=== PATIENT | male | born 1935 | race Caucasian/White ===

== ENCOUNTER 2023-07-08 17:39 | Emergency (ER) | payer MEDICARE ==
[~2023-07-08] VITALS: Ht 180.3 cm; Wt 65.8 kg
[2023-07-08] MEDS ORDERED: ASPI-1169 PO (18:17)
[2023-07-08] MEDS ORDERED: AMLO-212 PO (18:17)
[2023-07-08] MEDS ORDERED: VITA15LO2 PO (18:17)
[2023-07-08] MEDS ORDERED: ESCI10TA PO (18:17)
[2023-07-08] MEDS ORDERED: ATOR40TA PO (18:17)
[2023-07-08] MEDS ORDERED: CLOP75TA15 PO (18:17)
[2023-07-08] MEDS ORDERED: MIRT7.5T10 PO (18:18)
[2023-07-08] MEDS ORDERED: ACET325C7 PO (22:23)
[2023-07-08 23:34] VITALS: BP 128/62; TEMP 98.3; O2SAT 95
== END 2023-07-08 23:35 ==
LOC: ER 17:44
DX: M25.512 Pain in left shoulder (principal); I10 Essential (primary) hypertension; R51.9 Headache, unspecified; Z79.899 Other long term (current) drug therapy; Z79.82 Long term (current) use of aspirin; W01.0XXA Fall on same level from slipping, tripping and stumbling without subsequent striking against object, initial encounter; Y93.89 Activity, other specified; Y92.89 Other specified places as the place of occurrence of the external cause; Y99.8 Other external cause status
CPT/HCPCS: 70450-TC; 72125-TC; 73030-TC